=== PATIENT | male | born 1960 | race Caucasian/White ===

== ENCOUNTER 2018-04-14 21:04 | Emergency (ER) | payer BC ==
[~2018-04-14 21:04] MED LIST: ACE500 PO; CEP500 PO; IBU800 PO; NAPR220C12 PO; VANC1VIA14 IV
--- NOTE | 2018-04-14 22:07 | ER Report ---
History and Physical Time Seen By MD: 21:15 Hx. of Stated Complaint: PATIENT STATES HE HAS LEFT CALF SWELLING, REDNESS, AND TENDERNESS TO TOUCH FOR 6 DAYS. HPI/ROS CHIEF COMPLAINT: Leg swelling HISTORY OF PRESENT ILLNESS: 58-year-old male presents with left proximal calf swelling, erythema, that has been present for approximately one week. Patient denies recent injury, notes that proximal calf swelling was worse over the past couple days as exes somewhat improved but now is advancing towards the posterior knee. Pain is mild. There is no extension into the thigh or distal to the foot. He has not had fevers or chills. No shortness of breath or chest pain. Patient notes that he has had varicose veins in this leg but has never had complications. He has had knee cellulitis the past and this leg but this does n ot seem like same pain. 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 He has not had any recent travel. No prior VTE. He has been taking 81 mg of aspirin most days for the pain and swelling. REVIEW OF SYSTEMS: Constitutional: No fever, no chills. Eyes: No discharge. ENT: No sore throat. Cardiovascular: No chest pain, no palpitations. Respiratory: No cough, no shortness of breath. Gastrointestinal: No abdominal pain, no vomiting. Genitourinary: No hematuria. Musculoskeletal: No back pain. Skin: above Neurological: No headache. Remainder of the 14 system rev: Yes Allergies: Coded Allergies: No Known Drug Allergies (Unverified , 04/14/18) Home Meds Active Scripts Rivaroxaban 10 MG (Xarelto 10 MG) 10 Mg Tablet, 10 MG PO DAILY for 45 Days, #45 TAB Prov:DEMETRI COLEMAN MD 04/14/18 Reported Medications Naproxen Sodium (ALEVE) 220 Mg Capsule, 220 MG PO TID, CAPSULE 09/01/15 Reviewed Nurses Notes: Yes Hx Smoking: No Smoking Status: Never Smoker Exposure to Second Hand Smoke?: No Hx Substance Use Disorder: No Hx Alcohol Use: No Constitutional Vital Sign - Last 24 Hours 04/14/18 21:09 Temp 99.1 Pulse 91 Resp 15 B/P (MAP) 158/107 Pulse Ox 91 O2 Delivery Room Air Physical Exam General Appearance: The patient is alert, has no immediate need for airway protection and no signs of toxicity. [ ] Eyes: Pupils equal and round no pallor or injection. ENT, Mouth: Mucous membranes are moist. Respiratory: There are no retractions, lungs are clear to auscultation. Cardiovascular: Regular rate and rhythm. Neurological: alert, appropriately interactive Skin: Warm and dry, no rashes other than below Musculoskeletal: Patient has 8 x 8 cm palpable cords and erythema proximal medial calf extending towards popliteal fossa. He has no popliteal tenderness. He has no thigh tenderness. Distal DP and PT are 2+. There is no ankle swelling. DIFFERENTIAL DIAGNOSIS: After history and physical exam differential diagnosis was considered for DVT, superficial thrombophlebitis, cellulitis, or other etiology of symptoms. Medical Decision Making ED Course/Re-evaluation ED Course 58-year-old male presents with findings consistent with moderate superficial thrombophlebitis, however, with recent progression towards popliteal fossa, will ultrasound to rule out DVT. He has no signs of PE. Findings are not consistent with cellulitis. Ultrasound shows superficial thrombophlebitis as consistent with clinical exam, without DVT. Patient is at increased risk for thromboembolism given the recent extension of his symptoms as well as greater than 5 cm affected pain segment. Therefore, after discussion Riss and benefits, we'll start on [place] for 45 days. Patient denies bleeding problems in the past. He understands this and benefits and strict return precautions. Decision to Disposition Date: Apr 14, 2018 Decision to Disposition Time: 23:27 Depart Departure Latest Vital Signs Vital Signs Date Time Temp Pulse Resp B/P (MAP) Pulse Ox O2 Delivery O2 Flow Rate FiO2 04/14/18 21:09 99.1 91 15 158/107 91 Room Air Impression: Primary Impression: Superficial thrombophlebitis Condition: Improved Disposition: HOME OR SELF-CARE New Scripts Rivaroxaban 10 MG (Xarelto 10 MG) 10 Mg Tablet 10 MG PO DAILY for 45 Days, #45 TAB Prov: DEMETRI COLEMAN MD 04/14/18 Patient Instructions: Superficial Thrombophlebitis (ED) Additional Instructions: Please return immediately for chest pain or trouble breathing, extension into or pain in the thigh or behind the knee, external bleeding, or any concerns. Problem Qualifiers Primary Impression: Superficial thrombophlebitis Superficial thrombophlebitis-Involved body area: lower extremity Laterality: left Qualified Codes: I80.02 - Phlebitis and thrombophlebitis of superficial vessels of left lower extremity DEMETRI COLEMAN MD Apr 14, 2018 22:07
--- NOTE | 2018-04-14 22:57 | RADIOLOGY IMAGING REPORT ---
FACILITY: [facility] PATIENT NAME: Sudhakar Galan : 1960 MR: [id number] V: [id number] EXAM DATE: ORDERING PHYSICIAN: DEMETRI COLEMAN TECHNOLOGIST: [place] [facility] [place] Patient: Sudhakar Galan : 1960 Visit/Account:[id number] Date of Sevice: 04/14/2018 US VENOUS LOWER EXT LT HISTORY: swelling, pain, ttp left proximal calf COMPARISON: None. FINDINGS: Grayscale, duplex and color Doppler interrogation of the left lower extremity deep veins from common femoral vein to proximal calf was completed. The greater saphenous vein in the proximal thigh was elvira luated using similar technique. Common femoral vein - Negative. Femoral vein - Negative. Deep femoral vein - Negative. Popliteal vein - Negative. Visualized deep calf veins - Negative. Popliteal fossa: Negative. Greater saphenous vein in the proximal thigh: Negative. Other: Deep to the patient's area of concern, along the left calf, there is a thrombosed varicose vei n. IMPRESSION: 1. No evidence for DVT. 2. Thrombosed varicose vein at the patient's area of concern. Report Dictated By: Travis Wilkerson MD at 04/14/2018 10:52 PM Report E-Signed By: Travis Wilkerson MD at 04/14/2018 10:53 PM WSN:[id number]
[2018-04-14] MEDS ORDERED: RIVA10TA PO (23:14)
[2018-04-14 23:20] VITALS: BP 148/94
== END 2018-04-14 23:28 | disposition home or self-care (01) ==
LOC: ER 21:31
DX: I80.02 Phlebitis and thrombophlebitis of superficial vessels of left lower extremity (principal)
CPT/HCPCS: 99284

== ENCOUNTER → 2018-04-25 | Outpatient (CLI) | payer BC ==
[~2018-04-25] MED LIST changes: +RIVA10TA PO
[2018-04-25 14:18] LABS: PLATELET COUNT, AUTOMATED 235 K/uL (150-450)
[2018-04-25 14:27] LABS: LDL CHOLESTEROL 70 mg/dl
== END ==
LOC: LAB 04-24 15:09
PROVIDERS: ATTEND Internal Medicine
DX: I83.892 Varicose veins of left lower extremity with other complications (principal); I80.9 Phlebitis and thrombophlebitis of unspecified site; R03.0 Elevated blood-pressure reading, without diagnosis of hypertension
CPT/HCPCS: 81001; 82040; 82247; 82310; 82374; 82435; 82465; 82565; 82947; 83718; 84075; 84132; 84153; 84155; 84295; 84443; 84450; 84460; 84478; 84520; 85025